=== PATIENT | male | born 1965 | race Caucasian/White ===

== ENCOUNTER 2022-06-14 07:29 | Day surgery (SDC) | payer MEDICAID, OTHER ==
[~2022-06-14] VITALS: Ht 180.3 cm; Wt 112.7 kg
[2022-06-14] MEDS ORDERED: SODIUM CHLORIDE 0.9% 1,000 ML IV ONE (07:30)
[2022-06-14 08:08] LABS: COVID AG,FIA SOURCE NASAL SWAB
[2022-06-14 08:46] LABS: GLUCOMETER DEV NAME(LOC) SDS.; GLUCOSE,POINT OF CARE 128 MG/DL (70-110)
[2022-06-14] MEDS ORDERED: ATOR40TA28 PO (08:55)
[2022-06-14] MEDS ORDERED: METF-1211 PO (08:55)
[2022-06-14] MEDS ORDERED: PROPOFOL 1% 20 ML VIAL IVP ONE (12:00)
[2022-06-14] MEDS ORDERED: LIDOCAINE/PF 2% 5 ML VIAL IM ONE (12:00)
[2022-06-14] MEDS ORDERED: OXYGEN THERAPY IH SCH (20:00)
== END 2022-06-14 11:15 | disposition home or self-care (01) ==
LOC: SURGERY 07:29
PROVIDERS: ATTEND Specialist
DX: K22.70 Barrett's esophagus without dysplasia (principal); K29.70 Gastritis, unspecified, without bleeding; B96.81 Helicobacter pylori [H. pylori] as the cause of diseases classified elsewhere; K21.9 Gastro-esophageal reflux disease without esophagitis; E78.00 Pure hypercholesterolemia, unspecified; F17.210 Nicotine dependence, cigarettes, uncomplicated; Z20.822 Contact with and (suspected) exposure to COVID-19; E11.9 Type 2 diabetes mellitus without complications; Z98.890 Other specified postprocedural states; Z72.89 Other problems related to lifestyle; Z87.01 Personal history of pneumonia (recurrent)
CPT/HCPCS: 43239; 87426; 82962; C9803; C1769; J2704; J3490

== ENCOUNTER 2022-07-12 07:10 | Day surgery (SDC) | payer OTHER ==
[~2022-07-12] VITALS: Ht 167.6 cm; Wt 109.1 kg
[~2022-07-12 07:10] MED LIST: ATOR40TA28 PO; METF-1211 PO; SODIUM CHLORIDE 0.9% 1,000 ML IV ONE
[2022-07-12 07:38] LABS: COVID AG,FIA SOURCE NASAL SWAB
[2022-07-12 09:51] LABS: GLUCOMETER DEV NAME(LOC) SDS.; GLUCOSE,POINT OF CARE 124 MG/DL (70-110)
[2022-07-12] MEDS ORDERED: PROPOFOL 1% 20 ML VIAL IVP ONE ×2 (12:00)
[2022-07-12] MEDS ORDERED: LIDOCAINE/PF 2% 5 ML VIAL IM ONE ×2 (12:00)
[2022-07-12] MEDS ORDERED: OXYGEN THERAPY IH SCH (20:00)
== END 2022-07-12 11:30 | disposition home or self-care (01) ==
LOC: SURGERY 07:10
PROVIDERS: ATTEND Specialist
DX: Z12.11 Encounter for screening for malignant neoplasm of colon (principal); Z79.899 Other long term (current) drug therapy; D12.8 Benign neoplasm of rectum; E66.01 Morbid (severe) obesity due to excess calories; E11.9 Type 2 diabetes mellitus without complications; Z87.01 Personal history of pneumonia (recurrent); Z98.890 Other specified postprocedural states; Z20.822 Contact with and (suspected) exposure to COVID-19
CPT/HCPCS: 45385; 87426; 82962; C9803; C1769; J2704; J3490; 88305